=== PATIENT | female | born 1960 | race Caucasian/White ===

== ENCOUNTER 2018-11-13 10:48 | Emergency (ER) | payer OTHER ==
[~2018-11-13] VITALS: Ht 162.6 cm; Wt 55.8 kg
[2018-11-13 11:11] VITALS: Ht 162.6 cm; Wt 55.8 kg
[2018-11-13 11:55] LABS: microscopic required? NO
[2018-11-13 12:09] LABS: UA SPECIFIC GRAVITY 1.025 (1.005-1.035); urine erythrocyte NEGATIVE (NEGATIVE)
[2018-11-13 12:47] VITALS: BP 121/75
== END 2018-11-13 12:47 | disposition home or self-care (01) ==
LOC: ED 10:48
PROVIDERS: Emergency Medicine
DX: K59.00 Constipation, unspecified (principal)